=== PATIENT | male | born 1945 | race Caucasian/White ===

== ENCOUNTER 2021-02-11 12:17 | Inpatient (IN) | payer OTHER, MEDICARE, SELFPAY ==
[~2021-02-11] VITALS: Ht 182.9 cm; Wt 118.8 kg
--- NOTE | 2021-02-11 12:18 | NUR ---
Placed in room 1 . Placed on cardiac specialist, blood pressure machine and pulse oximeter. To gown for exam. Side rails up. Report given to DEYVI Wallace.
[2021-02-11] MEDS ORDERED: METOCLOPRAMIDE HCL 10 MG/2 ML VIAL IVP ONE (12:30)
[2021-02-11] MEDS ORDERED: MECLIZINE HCL 25 MG TABLET (ANITVERT) PO ONE (12:30)
[2021-02-11 12:33] VITALS: BP_SYST 144
--- NOTE | 2021-02-11 12:35 | NUR ---
Pt came to ER via [facility] for complaint of pale, cool, diaphoretic skin, dizziness. EKG performed at bedside, blood sugar 122, pt resting in [facility], awaiting MD merino.
--- NOTE | 2021-02-11 12:40 | NUR ---
ER at bedside examining patient.
[2021-02-11 12:55] LABS: BASOPHILS % (AUTO) 0.4 % (0.0-2.0); EOSINOPHILS # (AUTO) 0.1 K/uL (0.0-0.4); EOSINOPHILS % (AUTO) 2.2 % (0.0-4.0); HEMATOCRIT 40.6 % (36-54); HEMOGLOBIN 13.5 g/dL (14.0-18.0); LYMPHOCYTES # (AUTO) 1.6 K/uL (1.0-5.5); LYMPHOCYTES % (AUTO) 32.8 % (20.5-51.5); MEAN CORPUSCULAR HEMOGLOBIN 31 pg (27-31); MEAN CORPUSCULAR HGB CONC 33 % (32-36); MEAN CORPUSCULAR VOLUME 92 fL (79.0-98.0); MONOCYTES # (AUTO) 0.5 K/uL (0.0-1.0); MONOCYTES % (AUTO) 9.6 % (1.7-9.3); NEUTROPHILS # (AUTO) 2.7 K/uL (1.8-7.7); PLATELET COUNT (AUTO) 143 K/uL (130-430); RED BLOOD CELL COUNT(AUTO) 4.41 MIL/uL (4.2-6.2); RED CELL DISTRIBUTION WIDTH 14.6 % (9.0-15.0); WHITE BLOOD COUNT (AUTO) 4.9 K/uL (4.8-10.8)
[2021-02-11 13:05] LABS: ANION GAP 11 (5-15); CALCIUM 8.6 mg/dL (8.4-11.0); CHLORIDE 108 mmol/L (98-107); CREATININE 0.91 mg/dL (0.55-1.30); GLUCOSE 121 mg/dL (70-99); POTASSIUM 3.8 mmol/L (3.5-5.1); SODIUM SERUM 145 mmol/L (136-145); UREA NITROGEN, BLOOD 20 mg/dL (8-21)
[2021-02-11 13:10] LABS: INR 2.1 (0.80-1.20); PROTHROMBIN TIME 20.7 SECS (9.5-12.5)
[2021-02-11 13:11] LABS: ALANINE AMINOTRANSFERASE 19 U/L (12-78); ALBUMIN 3.4 g/dL (3.4-4.8); ASPARTATE AMINOTRANSFERASE 18 U/L (10-37); TOTAL BILIRUBIN 0.8 mg/dL (0.0-1.0)
--- NOTE | 2021-02-11 13:13 | NUR ---
At radiology with tech
--- NOTE | 2021-02-11 13:47 | NUR ---
Admit orders received from Dr. Gaona, pt to go to Tele, talked to [facility], states they don't have a nurse she will call us with a bed.
--- NOTE | 2021-02-11 14:28 | NUR ---
Pt resting in [facility] at this time, no distress noted, VSS
--- NOTE | 2021-02-11 15:02 | NUR ---
Unable to complete med rec at this time, pt states he does not have family to bring in medication or send pictures until later
--- NOTE | 2021-02-11 15:14 | NUR ---
Patient will be admitted to care of [facility]. Admitted to MedSurg unit. Will go to room 102A. Belongings list completed. Complete and up to date summary report printed. SBAR report to be given at bedside with opportunity for questions.
[2021-02-11] MEDS ORDERED: WARF-52 PO (15:45)
[2021-02-11] MEDS ORDERED: HYT1 PO (15:45)
[2021-02-11] MEDS ORDERED: METF1000 PO (15:45)
[2021-02-11] MEDS ORDERED: METH10TA80 PO (15:45)
--- NOTE | 2021-02-11 16:30 | NUR ---
RECEIVED REPORT FROM DEYVI UMANZOR. PT STABLE AT THIS TIME.
[2021-02-11] MEDS ORDERED: HYDROcodone/ACETAMIN 10-325 MG TAB PO PRN (18:15)
[2021-02-11] MEDS ORDERED: ONDANSETRON HCL 4 MG/2 ML VIAL IVP PRN (18:15)
[2021-02-11] MEDS ORDERED: NALOXONE HCL 0.4 MG/ML AMP (NARCAN) IVP PRN ×2 (18:15)
[2021-02-11] MEDS ORDERED: ACETAMINOPHEN 325 MG TABLET PO PRN (18:15)
[2021-02-11] MEDS ORDERED: HYDROcodone/ACETAMIN 5-325 MG TAB (NORCO/ VICODIN) PO PRN (18:15)
[2021-02-11] MEDS ORDERED: LORazepam 2 MG/ML VIAL IVP PRN (18:15)
[2021-02-11 18:34] VITALS: BP_SYST 147
--- NOTE | 2021-02-11 18:54 | NUR ---
CLOSING NOTES PT AWAKE, ALERT, AND ORIENTED. WATCHING TV. NONLABORED BREATHING NOTED ON ROOM AIR, TOLERATING WELL. IV LINE INTACT AND PATENT, NO SIGNS OF INFILTRATION NOTED. NO ACUTE DISTRESS NOTED. ALL NEEDS MET. CALL LIGHT IN REACH. FALL AND ASPIRATION PRECAUTIONS IN PLACE. WILL ENDORSE TO NOC NURSE.
--- NOTE | 2021-02-11 19:30 | NUR ---
rounds Dr. Orr (neuro) at nursing station and ordered for Accu check ACHS.
--- NOTE | 2021-02-11 19:40 | NUR ---
pharmacy technician program director at bedside.
[2021-02-11 20:18] VITALS: BP_SYST 133
--- NOTE | 2021-02-11 20:18 | NUR ---
Opening notes Pt AAOx4, VSS, O2 sat 95% on room air. IV saline locked L. AC 18G clear and patent. Pt denies any dizziness or sob. Encouraged pt to call for assistance as needed, pt verbalized understanding. Call light within reach. Bed low, locked, siderails up x2. To monitor.
--- NOTE | 2021-02-11 20:43 | NUR ---
Ambulated Pt ambulated to bathroom, steady gait. No c/o dizziness. To monitor.
[2021-02-11] MEDS ORDERED: WARFARIN SODIUM 5 MG TABLET PO SCH (21:00)
--- NOTE | 2021-02-11 21:07 | NUR ---
CONSULTATION PAGED/CALLED Reason for Consultation: BRADYCARDIA Person Who was Notified: MATTHEW Consulting Physician: Development Administrator Specialty: Ordering Physician: Mick WADDELL
[2021-02-11] MEDS: NORMAL SALINE 5 ML DISP.SYRIN IVF SCH (21:13)
[2021-02-11] MEDS ORDERED: NORMAL SALINE 5 ML DISP.SYRIN IVF SCH (22:00)
[2021-02-11 23:52] VITALS: BP_SYST 137
[2021-02-12 00:05] VITALS: BP_SYST 137
--- NOTE | 2021-02-12 01:15 | NUR ---
Rounds Pt asleep, respirations even and unlabored. Call light within reach. Bed low, locked, siderails up x2. To monitor.
--- NOTE | 2021-02-12 03:05 | NUR ---
CONSULTATION PAGED/CALLED Reason for Consultation: VERTIGO Person Who was Notified: SKY Consulting Physician: DR. DEY Plumbing Manager Specialty: Ordering Physician: Mick SIMON
--- NOTE | 2021-02-12 06:20 | NUR ---
Closing notes Pt asleep, easily awakens, no s/s distress noted. BS checked 103. IV saline locked L. AC 18g clear and patent. Call light within reach. Bed maintained low, locked, siderails up x2. To endorse to AM nurse.
[2021-02-12] MEDS: NORMAL SALINE 5 ML DISP.SYRIN IVF SCH ×3 (06:23→21:34)
[2021-02-12 07:14] LABS: BASOPHILS % (AUTO) 0.5 % (0.0-2.0); EOSINOPHILS # (AUTO) 0.1 K/uL (0.0-0.4); EOSINOPHILS % (AUTO) 2.6 % (0.0-4.0); HEMATOCRIT 39.7 % (36-54); HEMOGLOBIN 13.1 g/dL (14.0-18.0); LYMPHOCYTES # (AUTO) 1.5 K/uL (1.0-5.5); LYMPHOCYTES % (AUTO) 25.8 % (20.5-51.5); MEAN CORPUSCULAR HEMOGLOBIN 31 pg (27-31); MEAN CORPUSCULAR HGB CONC 33 % (32-36); MEAN CORPUSCULAR VOLUME 93 fL (79.0-98.0); MONOCYTES # (AUTO) 0.5 K/uL (0.0-1.0); MONOCYTES % (AUTO) 9.1 % (1.7-9.3); NEUTROPHILS # (AUTO) 3.5 K/uL (1.8-7.7); PLATELET COUNT (AUTO) 145 K/uL (130-430); RED BLOOD CELL COUNT(AUTO) 4.28 MIL/uL (4.2-6.2); RED CELL DISTRIBUTION WIDTH 14.8 % (9.0-15.0); WHITE BLOOD COUNT (AUTO) 5.7 K/uL (4.8-10.8)
[2021-02-12 07:17] LABS: INR 2.4 (0.80-1.20); PROTHROMBIN TIME 23.7 SECS (9.5-12.5)
[2021-02-12 07:50] LABS: ALANINE AMINOTRANSFERASE 15 U/L (12-78); ALBUMIN 3.1 g/dL (3.4-4.8); ANION GAP 7 (5-15); ASPARTATE AMINOTRANSFERASE 15 U/L (10-37); CALCIUM 8.6 mg/dL (8.4-11.0); CHLORIDE 109 mmol/L (98-107); CREATININE 0.84 mg/dL (0.55-1.30); GLUCOSE 103 mg/dL (70-99); PHOSPHORUS 3.4 mg/dL (2.7-4.5); POTASSIUM 4.1 mmol/L (3.5-5.1); SODIUM SERUM 145 mmol/L (136-145); THYROID STIMULATING HORMONE 1.77 uIu/mL (0.36-3.74); TOTAL BILIRUBIN 0.7 mg/dL (0.0-1.0); UREA NITROGEN, BLOOD 17 mg/dL (8-21)
[2021-02-12] MEDS: metFORMIN HCL 500 MG TABLET PO SCH ×2 (08:00→17:45)
--- NOTE | 2021-02-12 08:00 | NUR ---
am notes pt in bed . a/ox 4. denies any chest pain or sob. not in acute distress. vitals stable not in acute distress.safety/ fall precautions in place.and maintained. bed locked and in low position. call light within reach. poc discussed with pt. verbalized understanding. will continue to monitor
[2021-02-12] MEDS ORDERED: TERAZOSIN HCL 1 MG CAPSULE (HYTRIN) PO SCH ×2 (09:00→21:00)
[2021-02-12] MEDS: methIMAzole 5 MG TABLET PO SCH (09:00)
--- NOTE | 2021-02-12 09:10 | NUR ---
found home meds at bedside pt refused morning meds stated he already took his morning pills form his medication bag. stated his brought bag of medicines yesterday. educated pt that he can not take medications from his own in the hospital because he needs to follow doctors orders in the hospital . this RN took med from pt and placed in pts own medication envelope .charge histotechnologist markel made aware.. pt medication bag will give to pharmacy.
--- NOTE | 2021-02-12 10:45 | NUR ---
pt hr 47. pt hr 47 not sustaining back to 60ies .pt stable denies any chest pain or sob. ambulated to bathroom with steady gait. denies any discomfort/dizziness. paged dr mcmullen to notify waiting for call back
[2021-02-12] MEDS ORDERED: TOPXL100 PO (11:39)
--- NOTE | 2021-02-12 11:51 | NUR ---
CONSULTATION: REASON FOR CONSULT: BRADYCARDIA CONSULTING PHYSICIAN: ANDREZ ORDERED BY: DEIDRE SPOKE WITH [facility] [phone]
[2021-02-12 12:56] VITALS: BP_SYST 141
[2021-02-12 16:20] VITALS: BP_SYST 132
--- NOTE | 2021-02-12 16:38 | NUR ---
CONSULTATION: REASON FOR CONSULT: BRADYCARIA CONSULTING PHYSICIAN: MERNA JIANG ORDERED BY: DEIDRE SPOKE WITH [facility] [phone]
[2021-02-12] MEDS ORDERED: WARFARIN SODIUM 3 MG TABLET PO SCH (18:00)
--- NOTE | 2021-02-12 18:46 | NUR ---
closing notes pt in bed . a/ox 4. denies any chest pain or sob. not in acute distress.not in acute distress.safety/ fall precautions in place.and maintained. bed locked and in low position. call light within reach. poc discussed with pt. dr pineda her. informed about pt low hr 47. and 50-60.needs attnded. will endorse to night nurse
[2021-02-12 20:00] VITALS: BP_SYST 139
--- NOTE | 2021-02-12 20:00 | NUR ---
Opening notes Pt AAOx4, VSS, O2 sat 95% on room air. IV saline locked L. AC 18G clear and patent. Pt denies any dizziness or sob. Encouraged pt to call for assistance as needed, pt verbalized understanding. Call light within reach. at bedside. Bed low, locked, siderails up x2. To monitor.
[2021-02-13 00:36] VITALS: BP_SYST 157
--- NOTE | 2021-02-13 01:16 | NUR ---
HR 37 not sustaining, back up to 70's. Pt denies sob or discomfort. Will continue to monitor.
[2021-02-13] MEDS: NORMAL SALINE 5 ML DISP.SYRIN IVF SCH (06:00)
[2021-02-13 06:39] LABS: BASOPHILS % (AUTO) 0.7 % (0.0-2.0); EOSINOPHILS # (AUTO) 0.2 K/uL (0.0-0.4); HEMATOCRIT 41.4 % (36-54); HEMOGLOBIN 13.5 g/dL (14.0-18.0); LYMPHOCYTES # (AUTO) 1.8 K/uL (1.0-5.5); LYMPHOCYTES % (AUTO) 33.4 % (20.5-51.5); MEAN CORPUSCULAR HEMOGLOBIN 30 pg (27-31); MEAN CORPUSCULAR HGB CONC 33 % (32-36); MEAN CORPUSCULAR VOLUME 92 fL (79.0-98.0); MONOCYTES # (AUTO) 0.4 K/uL (0.0-1.0); MONOCYTES % (AUTO) 7.8 % (1.7-9.3); NEUTROPHILS % (AUTO) 54.1 % (40.0-70.0); PLATELET COUNT (AUTO) 151 K/uL (130-430); RED BLOOD CELL COUNT(AUTO) 4.48 MIL/uL (4.2-6.2); RED CELL DISTRIBUTION WIDTH 14.9 % (9.0-15.0); WHITE BLOOD COUNT (AUTO) 5.5 K/uL (4.8-10.8)
[2021-02-13 06:59] LABS: INR 2.3 (0.80-1.20); PROTHROMBIN TIME 22.9 SECS (9.5-12.5)
[2021-02-13 07:07] LABS: ANION GAP 11 (5-15); CALCIUM 8.7 mg/dL (8.4-11.0); CHLORIDE 107 mmol/L (98-107); CREATININE 0.81 mg/dL (0.55-1.30); GLUCOSE 100 mg/dL (70-99); SODIUM SERUM 144 mmol/L (136-145); UREA NITROGEN, BLOOD 16 mg/dL (8-21)
[2021-02-13 08:03] VITALS: BP_SYST 149
--- NOTE | 2021-02-13 08:15 | NUR ---
OPENING NOTES PATIENT AAOX 4. VITALS SIGNS STABLE. AFEBRILE. RESPIRATION EVEN AND UNLABORED. HR 65. DENIES ANY DISCOMFORT NOR PAIN NOTED. IV ACCESS ON THE LEFT FOREARM #18. SALINE LOCK. PATENT/DRY. BED LOW POSITION, ALARMED AND LOCKED. WILL CONTINUE TO MONITOR PATIENTS STATUS.
[2021-02-13] MEDS: methIMAzole 5 MG TABLET PO SCH (08:41)
[2021-02-13] MEDS: metFORMIN HCL 500 MG TABLET PO SCH (08:41)
[2021-02-13 12:03] VITALS: BP_SYST 133
[2021-02-13 13:07] VITALS: BP_SYST 132
[2021-02-13 13:14] VITALS: BP_SYST 132
[2021-02-13 14:30] VITALS: BP_SYST 128
--- NOTE | 2021-02-13 14:30 | NUR ---
PATIENT LEFT IN STABLE CONDITION. WEATHERIZATION FIELD TECHNICIAN BY JORGE SCHROEDER. DISCHARGE SUMMARY INSTRUCTION GIVEN TO THE PATIENT AND UNDERSTANDS THE FOLLOW UP WITH PCP AND JAXON SMITH. VITALS SIGNS STABLE. AFEBRILE.
[2021-02-13] MEDS ORDERED: WARFARIN SODIUM 4 MG TABLET PO SCH (18:00)
== END 2021-02-13 14:30 | disposition home or self-care (01) | DRG 312 ==
LOC: SED 12:17 → STU 13:48
PROVIDERS: ADMIT Preventive Medicine Preventive Medicine/Occupational Environmental Medicine; ATTEND Preventive Medicine Preventive Medicine/Occupational Environmental Medicine
DX: I95.1 Orthostatic hypotension (principal); I48.91 Unspecified atrial fibrillation; N40.0 Benign prostatic hyperplasia without lower urinary tract symptoms; E11.9 Type 2 diabetes mellitus without complications; E03.9 Hypothyroidism, unspecified; Z20.822 Contact with and (suspected) exposure to COVID-19; Z79.01 Long term (current) use of anticoagulants; Z79.899 Other long term (current) drug therapy
CPT/HCPCS: 36415; 70450-TC; 71045; 76376; 80048; 80053; 82962; 83735; 84100; 84443; 84484; 85025; 85610-TC; 85730-TC; 93005; 93306; 93880; 96374; 99285; G0378; J2765; J8597

== ENCOUNTER 2021-05-22 11:50 | Emergency (ER) | payer OTHER, MEDICARE ==
[~2021-05-22] VITALS: Ht 188 cm; Wt 118.8 kg
[~2021-05-22 11:50] MED LIST: HYT1 PO; METF1000 PO; METH10TA80 PO; WARF-52 PO
--- NOTE | 2021-05-22 11:50 | NUR ---
Placed in room 06 . Placed on groundwater monitoring technician, blood pressure machine and pulse oximeter. To gown for exam. Side rails up.
[2021-05-22 12:00] VITALS: BP_SYST 141
--- NOTE | 2021-05-22 12:03 | NUR ---
DR BOX AT BEDSIDE FOR EXAN.
[2021-05-22 12:27] LABS: BASOPHILS % (AUTO) 0.6 % (0.0-2.0); EOSINOPHILS # (AUTO) 0.1 K/uL (0.0-0.4); EOSINOPHILS % (AUTO) 2.3 % (0.0-4.0); HEMATOCRIT 39.4 % (36-54); HEMOGLOBIN 13.2 g/dL (14.0-18.0); LYMPHOCYTES # (AUTO) 1.5 K/uL (1.0-5.5); LYMPHOCYTES % (AUTO) 35.6 % (20.5-51.5); MEAN CORPUSCULAR HEMOGLOBIN 31 pg (27-31); MEAN CORPUSCULAR HGB CONC 34 % (32-36); MEAN CORPUSCULAR VOLUME 93 fL (79.0-98.0); MONOCYTES # (AUTO) 0.4 K/uL (0.0-1.0); NEUTROPHILS # (AUTO) 2.2 K/uL (1.8-7.7); NEUTROPHILS % (AUTO) 52.5 % (40.0-70.0); PLATELET COUNT (AUTO) 157 K/uL (130-430); RED BLOOD CELL COUNT(AUTO) 4.26 MIL/uL (4.2-6.2); RED CELL DISTRIBUTION WIDTH 14.6 % (9.0-15.0); WHITE BLOOD COUNT (AUTO) 4.3 K/uL (4.8-10.8)
[2021-05-22] MEDS: METOCLOPRAMIDE HCL 10 MG/2 ML VIAL IVP ONE (12:31)
[2021-05-22] MEDS: MECLIZINE HCL 25 MG TABLET (ANITVERT) PO ONE (12:32)
--- NOTE | 2021-05-22 12:41 | NUR ---
RECEIVED PT, LAYING ON BED, IN NAD. AAOX3, REPORTS BEING AT HOME WATCHING TV WITH WHEN HE SUDDENLY FELT LIGHTHEADED AND STARTED SWEATING "COLD", PT'S DROVE HIM TO ER. PT CURRENTLY FEELING BETTER, DECREASE IN DIZINESS. REPORTS BEING ADMITTED FOR SIMILIAR EPISODE IN FEBRUARY, WAS ADMITTED TO THIS HOSPITAL FOR 3 DAYS, SAW HIS [employer]CHOOL PRINCIPAL YESTERDAY, REPORTS HAVING CHRONIC AFIB. BLE SWELLING 2+EDEMA, BUT REPORTS IT IS A CHRONIC ISSUE. WILL CONT TO MONITOR.
[2021-05-22 12:49] LABS: ANION GAP 6 (5-15); CALCIUM 8.9 mg/dL (8.4-11.0); CHLORIDE 106 mmol/L (98-107); CREATININE 1.02 mg/dL (0.55-1.30); GLUCOSE 116 mg/dL (70-99); SODIUM SERUM 140 mmol/L (136-145); UREA NITROGEN, BLOOD 19 mg/dL (8-21)
[2021-05-22 12:55] LABS: ALANINE AMINOTRANSFERASE 21 U/L (12-78); ALBUMIN 3.4 g/dL (3.4-4.8); ASPARTATE AMINOTRANSFERASE 19 U/L (10-37); TOTAL BILIRUBIN 0.5 mg/dL (0.0-1.0)
[2021-05-22 13:01] LABS: INR 2.1 (0.80-1.20)
[2021-05-22] MEDS ORDERED: MECL-160 PO (13:30)
--- NOTE | 2021-05-22 14:03 | NUR ---
DC WITH [facility], RX CALLED TO PHARMACY. PT INFORMED TO F/U WITH PCP IN 1-2 DAYS AND OR RETURN IF SYMPTOMS PERSIST OR WORSEN. SL DC'D. VSS. PT DENIES ANY DIZZINESS AT THIS TIME.
[2021-05-22 14:06] VITALS: BP_SYST 134
--- NOTE | 2021-05-22 14:06 | NUR ---
WAS CALLED TO PREPAROLE COUNSELING AIDE PATINT, PT W/C TO [facility].
== END 2021-05-22 14:06 | disposition home or self-care (01) ==
LOC: SED 11:50
DX: R42 Dizziness and giddiness (principal); Z79.84 Long term (current) use of oral hypoglycemic drugs; Z79.899 Other long term (current) drug therapy
CPT/HCPCS: 36415; 70450; 71045; 76376; 80053; 84484; 85025; 85610; 85730; 93005; 96374; 99285; J2765; J8597